=== PATIENT | female | born 1995 | race Caucasian/White ===

== ENCOUNTER 2022-09-07 08:02 | Outpatient (CLI) | payer OTHER, SELFPAY ==
--- NOTE | 2022-09-07 08:15 | CRLHL7_ITS ---
For Patients: As a result of the Century Cures Act, medical imaging exams and procedure reports are released immediately into your electronic medical record. You may view this report before your referring provider. If you have questions, please contact your health care provider. INDICATION: First trimester scan, establish dates. COMPARISON: None. TECHNIQUE: Real-time kuhn-scale imaging of the pelvis was performed. FINDINGS: Sonographic imaging demonstrates a single living intrauterine gestation. The embryo demonstrates a regular cardiac rate measuring 185 beats per minute. The embryo`s crown-rump length measurement of 2.7 cm corresponds to a gestational age of 9 weeks 3 days with a sonographic due date of 04/09/2023. There is a normal-appearing yolk sac. There are no gross abnormalities noted within the embryo at this early state of development. The gestational sac has a normal appearance. There is a 2.7 x 1.1 x 2.2 cm perigestational hemorrhage. The amount of fluid within the sac appears appropriate for gestational age. The cervix is closed. The myometrium appears normal. The ovaries are of normal size. Corpus luteal cyst right ovary. There are no suspicious fluid collections noted in the cul-de-sac. IMPRESSION: Single living intrauterine with sonographic gestational age 9 weeks 3 days and sonographic due date 04/09/2023. Left subchorionic hemorrhage measuring 2.7 x 1.1 x 2.2 cm. Dictated by Siva Arrieta MD @ 09/07/2022 9:59:59 AM (Electronically Signed)
== END 2022-09-07 08:03 | disposition home or self-care (01) ==
PROVIDERS: Visit Provider Physician Assistant
DX: Z34.91 Encounter for supervision of normal pregnancy, unspecified, first trimester (principal); Z3A.09 9 weeks gestation of pregnancy
CPT/HCPCS: 76817

== ENCOUNTER 2022-09-07 09:13 | Outpatient (CLI) | payer OTHER, SELFPAY ==
[2022-09-07 12:47] LABS: Hepatitis B Surface Antigen* Negative (Negative)
[2022-09-07 12:57] LABS: HIV 1/2/P24 Combo Screen* Negative (Negative)
[2022-09-07 13:04] LABS: Hepatitis C Virus Antibody* Negative (Negative)
[2022-09-07 14:07] LABS: Chlamydia DNA Amplified* NOT DETECTED (No Detected); GC DNA Amplified* NOT DETECTED (No Detected)
[2022-09-09 00:44] LABS: Varicella-Zoster Virus Ab, IgG 390.7 IV
[2022-09-09 00:45] LABS: Rapid Plasma Reagin (RPR) Non Reactive (Non Reactive)
== END 2022-09-07 09:14 | disposition home or self-care (01) ==
PROVIDERS: Visit Provider Registered Nurse
DX: Z34.91 Encounter for supervision of normal pregnancy, unspecified, first trimester (principal); Z3A.09 9 weeks gestation of pregnancy
CPT/HCPCS: 86592; 86703; 86762; 86787; 86803; 86850; 86900; 86901; 87086; 87340; 87491; 87591

== ENCOUNTER 2022-10-05 16:29 | Outpatient (CLI) | payer OTHER, SELFPAY ==
--- NOTE | 2022-10-05 17:00 | CRLHL7_ITS ---
For Patients: As a result of the Cures Act, medical imaging exams and procedure reports are released immediately into your electronic medical record. You may view this report before your referring provider. If you have questions, please contact your health care provider. INDICATION: Vaginal discharge, possible leakage of fluid, positive AmniSure. COMPARISON: OB ultrasound 09/07/2022. TECHNIQUE: Real-time kuhn-scale imaging of the pelvis was performed. FINDINGS: Sonographic imaging demonstrates a single living intrauterine gestation. The embryo has a regular cardiac rate measuring 159 beats per minute. The embryo`s crown-rump length measurement of 8.0 cm corresponds to a gestational age of 14 weeks 0 days with a sonographic due date of 04/05/2023. The placenta lies posteriorly. No evidence of a perigestational hemorrhage. The cervix is closed and measures 4.4 cm in length. No obvious funneling of the internal os. Multiple small nabothian cysts in the cervix. No free fluid in the cul-de-sac. IMPRESSION: 1. Single living intrauterine gestation with crown rump length 8.0 cm which corresponds to a gestational age of 14 weeks 0 days with a sonographic due date of 04/05/2023. 2. The clinical gestational age by LMP is 13 weeks 3 days. 3. The cervix is long and closed. Multiple small nabothian cysts in the cervix. Dictated by Beverly Oneill MD @ 10/05/2022 5:53:58 PM (Electronically Signed)
== END 2022-10-05 16:30 | disposition home or self-care (01) ==
LOC: US 16:29
PROVIDERS: Visit Provider Obstetrics & Gynecology
DX: O26.891 Other specified pregnancy related conditions, first trimester (principal); N89.8 Other specified noninflammatory disorders of vagina; Z3A.13 13 weeks gestation of pregnancy
CPT/HCPCS: 76817

== ENCOUNTER 2022-10-05 17:05 | Outpatient (CLI) | payer OTHER, SELFPAY ==
[2022-10-05 17:22] LABS: Basophils Percent Auto 0.2 % (0.0-3.0); Eosinophils Percent Auto 0.6 % (0.0-7.0); Hematocrit 40.1 % (33.0-51.0); Hemoglobin* 13.8 gm/dL (12.0-16.0); Immature Granulocytes Pct Auto 0.5 %; Lymphocytes Percent Auto 13.8 % (20-44); Mean Corpuscular HGB Conc 34 gm/dL (32-36); Mean Corpuscular Hemoglobin 30 pg (26-34); Mean Corpuscular Volume 87 fL (80-100); Monocytes Percent Auto 6.1 % (0.0-11.0); Neutrophils Percent Auto 78.8 % (42.0-72.0); Platelet Count* 246 K/uL (140-440); RDW Coefficient of Variation % 12.6 % (11.5-15.5); Red Blood Count 4.61 m/uL (4.00-5.20); White Blood Count* 16.23 K/uL (4.50-11.00)
[2022-10-05 17:27] VITALS: RESP 16; TEMP 36.6
[2022-10-05 17:28] VITALS: BP 132/64; PULSE 93
[2022-10-05 17:49] LABS: Slide Review Reflex No
--- NOTE | 2022-10-05 18:16 | PM.OBLDTN ---
OB - Triage/Final Diagnosis Visit Information Time Seen by Provider: 18:16 Date Seen: 10/05/22 Date of evaluation: 10/05/22 Narrative: The patient is a 27 year old 2 para 1001 at 13 3/7 weeks gestation by early ultrasound, who presents with complaint of copious thin vaginal discharge of one week duration. She was evaluated in the [facility] clinic today by Dr. Cox, who performed a speculum exam, wet prep and amnisure. She was found to have some pooling clear mucoid fluid in the vagina, and also a positive cough test. The patient had been concerned that she had bacterial vaginosis, as she has had this in the past, but the wet prep was negative. The AmniSure came back positive. The uterus and cervix were nontender on exam. heart tones were present with the Doptones. The patient was then sent for an ultrasound, and this demonstrated a viable intrauterine with a normal amount of amniotic fluid. There was some questionable tiny pockets of fluid noted within the cervix by the agricultural engineering technician, of uncertain significance. The patient was sent to the center for further evaluation. The patient tells me that she is currently on amoxicillin for a presumed sinus infection. She has had upper respiratory symptoms for 2-3 weeks. She denies vaginal bleeding, fevers or chills, or abdominal or pelvic pain. She denies recent vaginal intercourse. She has no history of labor delivery. Evaluation Cervical dilation (cm): 0 Laboratory results: Laboratory Tests 10/05/22 Range/Units 17:17 WBC 16.23 H (4.50-11.00) K/uL RBC 4.61 (4.00-5.20) m/uL Hgb 13.8 (12.0-16.0) gm/dL Hct 40.1 (33.0-51.0) % MCV 87 (80-100) fL MCH 30 (26-34) pg MCHC 34 (32-36) gm/dL RDW Coeff of Sharmaine 12.6 (11.5-15.5) % Plt Count 246 (140-440) K/uL Neut % (Auto) 78.8 H (42.0-72.0) % Lymph % (Auto) 13.8 L (20-44) % Charlton % (Auto) 6.1 (0.0-11.0) % Eos % (Auto) 0.6 (0.0-7.0) % Baso % (Auto) 0.2 (0.0-3.0) % Neut # (Auto) 12.80 H (1.7-7.0) K/uL Lymph # (Auto) 2.20 (0.90-2.90) K/uL Charlton # (Auto) 1.00 H (0.00-0.90) K/UL Eos # (Auto) 0.10 (0.00-0.50) K/uL Baso # (Auto) 0.00 (0.00-0.30) K/uL Abs Immat Gran (auto) 0.10 (0.00-0.30) K/uL Imm/Tot Granulo (auto) 0.5 % Vital signs: Vital Signs - 24 hr 10/05/22 17:28 10/05/22 17:27 Temperature 98 F Pulse Rate 93 Respiratory Rate 16 Blood Pressure 132/64 Comments: I performed a sterile speculum examination. There was some mucoid clear fluid in the vagina which was sampled and spread on microscope slide to dry. The cervix was difficult to visualize, but coughing did not increase the amount of fluid discharge in the vagina. After 10-15 minutes, I examined the microscope slide under the microscope in the laboratory and did not find any evidence of ferning. Uterus and cervix were nontender. Fetus (Single) Heart Rate Baseline: 159 Final Diagnosis (1) Vaginal discharge during : Status: Acute Problem details: Negative fern test, despite positive AmniSure test. Suspect AmniSure was false-positive. Elevated white blood cell count could be due to sinusitis. No clinical evidence of chorioamnionitis at this time. Would recommend short-term follow-up on Monday with repeat CBC with differential and repeat AmniSure test. Patient will be scheduled with Dr. Cox.
== END 2022-10-05 18:20 | disposition home or self-care (01) ==
LOC: OB OUT 17:07 → OB 17:12
PROVIDERS: Visit Provider Obstetrics & Gynecology
DX: O26.899 Other specified pregnancy related conditions, unspecified trimester (principal); N89.8 Other specified noninflammatory disorders of vagina; Z3A.13 13 weeks gestation of pregnancy
CPT/HCPCS: 36415; 85025; 99213